=== PATIENT | male | born 1965 | race Caucasian/White ===

== ENCOUNTER 2016-11-18 18:15 | Emergency (ER) | payer OTHER ==
[~2016-11-18 18:15] MED LIST: LEVO100T4 PO; NORC7.5T PO; TAB-TAB PO
[2016-11-18 18:25] VITALS: BP 106/54; PULSE 83; RESP 16; TEMP 98.2; O2SAT 81
[2016-11-18] MEDS ORDERED: THIAMINE INJ 100 MG in SODIUM CHLORIDE 0.9% INJ 100 ML IV ONE (18:30)
[2016-11-18] MEDS ORDERED: ONDANSETRON HCL 4 MG/2 ML VIAL IV PUSH ONE (18:30)
[2016-11-18] MEDS ORDERED: SODIUM CHLOR 0.9% 1000 ML INJ 1,000 ML IV ONE (18:30)
[2016-11-18 18:47] LABS: AUTOMATED NEUTROPHIL # 5.5 TH/MM3 (1.8-7.7); BASOPHIL # 0.1 TH/MM3 (0-0.2); BASOPHIL % 0.7 % (0.0-2.0); EOSINOPHIL # 0.3 TH/MM3 (0-0.4); EOSINOPHIL % 3.2 % (0.0-4.0); HEMATOCRIT 42.7 % (39.0-51.0); HEMO FLAGS DIFF FINAL; LYMPH % 30.4 % (9.0-44.0); LYMPHOCYTE # 2.8 TH/MM3 (1.0-4.8); MEAN CELL VOLUME 86.7 FL (80.0-100.0); MEAN CORPUSCULAR HEMOGLOBIN 29.1 PG (27.0-34.0); MEAN CORPUSCULAR HGB CONC 33.6 % (32.0-36.0); MONO % 5.5 % (0.0-8.0); NEUT % 60.2 % (16.0-70.0); PLATELET COUNT 259 TH/MM3 (150-450); RED BLOOD COUNT 4.93 MIL/MM3 (4.50-5.90); RED CELL DISTRIBUTION WIDTH 12.8 % (11.6-17.2); WHITE BLOOD COUNT 9.2 TH/MM3 (4.0-11.0)
[2016-11-18] MEDS ORDERED: SODIUM CHLOR 0.9% 1000 ML INJ 1,000 ML IV SCH (19:00)
[2016-11-18] MEDS ORDERED: LEVO50TA4 PO (19:02)
[2016-11-18 19:13] LABS: CHLORIDE 103 MEQ/L (98-107); SODIUM (NA) 138 MEQ/L (136-145)
[2016-11-18 19:17] LABS: ANION GAP 8 MEQ/L (5-15); BICARBONATE 26.6 MEQ/L (21.0-32.0); BLOOD UREA NITROGEN 17 MG/DL (7-18)
[2016-11-18 19:20] LABS: ALT (GPT) 46 U/L (12-78); AST (GOT) 48 U/L (15-37); GLOMERULAR FILTRATION RATE 82 ML/MIN (>89)
[2016-11-18 19:21] LABS: TOTAL BILIRUBIN ADULT 0.3 MG/DL (0.2-1.0)
[2016-11-18 19:23] LABS: ALKALINE PHOSPHATASE 88 U/L (45-117)
[2016-11-18 19:24] LABS: POTASSIUM 4.3 MEQ/L (3.5-5.1)
--- NOTE | 2016-11-18 19:26 | RADRPT ---
EXAM DATE/TIME: 11/18/2016 19:06 [place] COMPARISON: No previous studies available for comparison. INDICATIONS : Altered mental status. RADIATION DOSE: 65.41 CTDIvol (mGy) MEDICAL HISTORY : Hypertension. SURGICAL HISTORY : Non-responsive. ENCOUNTER: Initial ACUITY: 1 day PAIN SCALE: Non-responsive LOCATION: cranial TECHNIQUE: Multiple contiguous axial images were obtained of the head. Using automated exposure control and adj ustment of the mA and/or kV according to patient size, radiation dose was kept as low as reasonably a chievable to obtain optimal diagnostic quality images. DICOM format image data is available electro nically for review and comparison. FINDINGS: There is mild motion artifact. CEREBRUM: The ventricles are normal for age. No evidence of midline shift, mass lesion, hemorrhage or acute in farction. No extra-axial fluid collections are seen. POSTERIOR FOSSA: The cerebellum and brainstem are intact. The 4th ventricle is midline. The cerebellopontine angle i s unremarkable. EXTRACRANIAL: The visualized portion of the orbits is intact. SKULL: The calvaria is intact. No evidence of skull fracture. CONCLUSION: Unremarkable noncontrast CT. Simba Cosme MD on November 18, 2016 at 19:23 Board Certified Radiologist. This report was verified electronically.
[2016-11-18 19:30] VITALS: BP 127/53; PULSE 72; RESP 14; O2SAT 95
--- NOTE | 2016-11-18 19:44 | PD ---
HPI Chief Complaint: Alcohol/Drug Intoxication Time Seen by Provider: 18:19 Travel History International Travel<30 days: No Contact w/Intl Traveler<30days: No Traveled to known affect area: No History of Present Illness HPI This 51-year-old male is brought by paramedics. He apparently fell on his pool deck. We do not believe that he had a loss of consciousness. He has reportedly been drinking heavily today. He is initially quite lethargic and not able to give history. The friend of his has come down so that he is not a heavy drinker. PFSH Past Medical History Medical History: Unable to Obtain Cancer: No Cardiovascular Problems: No Diabetes: No Endocrine: Yes Gastrointestinal Disorders: No Genitourinary: No Hepatitis: No Hiatal Hernia: No Hypertension: Yes Immune Disorder: No Medical other: No Musculoskeletal: No Neurologic: No Psychiatric: No Reproductive: No Respiratory: No Thyroid Disease: Yes (INACTIVE) Past Surgical History Abdominal Surgery: Yes (L INGUINAL HERNIA REPAIR 1985) AICD: No Joint Replacement: No Pacemaker: No Other Surgery: Yes Social History Alcohol Use: Yes (unknown amount) Tobacco Use: No Substance Use: No (unknown) Allergies-Medications (Allergen,Severity, Reaction): Uncoded Allergies: CEMENT DUST (Allergy, Unknown, BLISTERS ON SKIN, 11/27/13) 11/27/2013 [facility] Reported Meds & Prescriptions Reported Meds & Active Scripts Active Reported Levothyroxine (Levothyroxine Sodium) 50 Mcg Tab 50 Mcg PO DAILY Review of Systems ROS Limitations: Intoxication, Uncooperative, Poor Historian Physical Exam Narrative GENERAL: Somewhat obese male he snores frequently SKIN: Focused skin assessment warm/dry. HEAD: Atraumatic. Normocephalic. EYES: Pupils equal and round. No scleral icterus. No injection or drainage. ENT: No nasal bleeding or discharge. Mucous membranes pink and moist. NECK: Trachea midline. No JVD. CARDIOVASCULAR: Regular rate and rhythm. No murmur appreciated. RESPIRATORY: No accessory muscle use. Clear to auscultation. Breath sounds equal bilaterally. GASTROINTESTINAL: Abdomen soft, non-tender, nondistended. Hepatic and splenic margins not palpable. MUSCULOSKELETAL: No obvious deformities. No clubbing. No cyanosis. No edema. NEUROLOGICAL: Initially lethargic. He would rouse to painful stimuli. He moves all extremities. No obvious sign of trauma Data Data Last Documented VS Vital Signs Date Time Temp Pulse Resp B/P Pulse Ox O2 Delivery O2 Flow Rate FiO2 11/18/16 21:47 76 16 116/54 97 Room Air 11/18/16 18:25 98.2 Orders Complete Blood Count With Diff (11/18/16 18:20) Comprehensive Metabolic Panel (11/18/16 18:20) Ct Brain W/O Iv Contrast(Rout) (11/18/16 18:20) Alcohol (Ethanol) (11/18/16 18:20) Sodium Chlor 0.9% 1000 Ml Inj (Ns 1000 M (11/18/16 18:30) Ondansetron Inj (Zofran Inj) (11/18/16 18:30) Thiamine Inj (Thiamine Inj) (11/18/16 18:30) Sodium Chlor 0.9% 1000 Ml Inj (Ns 1000 M (11/18/16 19:00) Labs Laboratory Tests Test 11/18/16 18:36 White Blood Count 9.2 TH/MM3 Red Blood Count 4.93 MIL/MM3 Hemoglobin 14.4 GM/DL Hematocrit 42.7 % Mean Corpuscular Volume 86.7 FL Mean Corpuscular Hemoglobin 29.1 PG Mean Corpuscular Hemoglobin 33.6 % Concent Red Cell Distribution Width 12.8 % Platelet Count 259 TH/MM3 Mean Platelet Volume 7.6 FL Neutrophils (%) (Auto) 60.2 % Lymphocytes (%) (Auto) 30.4 % Monocytes (%) (Auto) 5.5 % Eosinophils (%) (Auto) 3.2 % Basophils (%) (Auto) 0.7 % Neutrophils # (Auto) 5.5 TH/MM3 Lymphocytes # (Auto) 2.8 TH/MM3 Monocytes # (Auto) 0.5 TH/MM3 Eosinophils # (Auto) 0.3 TH/MM3 Basophils # (Auto) 0.1 TH/MM3 CBC Comment DIFF FINAL Differential Comment Sodium Level 138 MEQ/L Potassium Level 4.3 MEQ/L Chloride Level 103 MEQ/L Carbon Dioxide Level 26.6 MEQ/L Anion Gap 8 MEQ/L Blood Urea Nitrogen 17 MG/DL Creatinine 0.96 MG/DL Estimat Glomerular Filtration 82 ML/MIN Rate Random Glucose 135 MG/DL Calcium Level 7.8 MG/DL Total Bilirubin 0.3 MG/DL Aspartate Amino Transf 48 U/L (AST/SGOT) Alanine Aminotransferase 46 U/L (ALT/SGPT) Alkaline Phosphatase 88 U/L Total Protein 7.0 GM/DL Albumin 3.1 GM/DL Ethyl Alcohol Level 274 MG/DL [facility] Medical Decision Making Medical Screen Exam Complete: Yes Emergency Medical Condition: Yes Medical Record Reviewed: Yes Differential Diagnosis Differential includes subdural hematoma, skull fracture, intoxication Narrative Course His blood alcohol is 274. CT scan of the brain is read as negative. He has been observed. He appears to have sleep apnea and he does get low oxygen saturations associated with snoring. He has been stable and has become more alert. Patient was observed in the emergency department for several hours and has become more alert. There is a friend here to take him home. He will be released Diagnosis Primary Impression: Alcohol intoxication Qualified Code: F10.920 - Alcohol intoxication, uncomplicated Additional Impression: Contusion of head Qualified Code: S00.93XA - Contusion of head, unspecified part of head, initial encounter Disposition: 01 DISCHARGE HOME Condition: Stable Mikey Reyes MD Nov 18, 2016 19:44
[2016-11-18 20:10] VITALS: BP 112/72; PULSE 68; RESP 16; O2SAT 95
[2016-11-18 21:47] VITALS: BP 116/54; PULSE 76; RESP 16; O2SAT 97
[2016-11-18 22:09] VITALS: BP 126/72
== END 2016-11-18 22:13 | disposition home or self-care (01) ==
LOC: PHED 18:15
DX: F10.920 Alcohol use, unspecified with intoxication, uncomplicated (principal); S00.93XA Contusion of unspecified part of head, initial encounter; I10 Essential (primary) hypertension; E07.9 Disorder of thyroid, unspecified; Z79.899 Other long term (current) drug therapy; W19.XXXA Unspecified fall, initial encounter
CPT/HCPCS: 70450; 80053; 80307; 85025; 96361; 96365; 96374; 99285; J2405; J3411; J7030